=== PATIENT | male | born 1945 | race Asian ===

== ENCOUNTER 2016-07-24 23:34 | Inpatient (IN) | payer MEDICAID ==
[~2016-07-24] VITALS: Ht 170.2 cm; Wt 67.1 kg
--- NOTE | 2016-07-24 23:45 | NUR ---
71 YO MALE [facility],. PT IS NON VERBAL, RESPONSIVE TO VERBAL STIMULI. PT GOWNED, PLACE DON SR VICE PRESIDENT. PER EMS, PT WAS SENT FOR HEMATURIA. NOTED GROSS AMOUNT OF BLOOD IN YEPEZ BAG. AWAITING ORDERS FROM PROVIDER, WILL CONTINUE TO MONITOR
--- NOTE | 2016-07-25 | NUR ---
IRRIGATED YEPEZ CATH ORDERED
[2016-07-25 00:15] LABS: APPEARANCE,URINE CLOUDY (CLEAR); BILIRUBIN,URINE 2+ (NEGATIVE); BLOOD, URINE 3+ Ery/uL (NEGATIVE); COLOR,URINE BROWN (YELLOW); KETONES,URINE TRACE (NEGATIVE); LEUKOCYTE ESTERASE ,URINE 3+ (NEGATIVE); NITRITE, URINE POSITIVE (NEGATIVE); PH,URINE 6.5 (5.0-8.0); PROTEIN,URINE 3+ mg/dl (NEGATIVE); UGLUCOSE NEGATIVE (NEGATIVE)
[2016-07-25 00:24] LABS: BACTERIA,URINE Many /HPF (None Seen); RBC,URINE TOO NUMEROUS TO COUN /HPF (0-2); SQUAMOUS EPITHELIAL CELL,UR Rare /HPF (None Seen); WBC,URINE TOO NUMEROUS TO COUN /HPF (0-3)
[2016-07-25] MEDS ORDERED: ATOR10TA PO (00:27)
[2016-07-25] MEDS ORDERED: MULT-213 PO (00:27)
[2016-07-25] MEDS ORDERED: AMIN30LI27 PO (00:27)
[2016-07-25] MEDS ORDERED: BISA10SU8 RC (00:27)
[2016-07-25] MEDS ORDERED: DOCU-270 PO (00:27)
[2016-07-25] MEDS ORDERED: DEXT1CAP3 PO (00:27)
[2016-07-25] MEDS ORDERED: CALC1TAB30 PO (00:27)
[2016-07-25] MEDS ORDERED: CRAN450C PO (00:27)
[2016-07-25] MEDS ORDERED: MIRT15TA PO (00:27)
[2016-07-25] MEDS ORDERED: SENN8.6T6 PO (00:27)
[2016-07-25] MEDS ORDERED: POTA8CAP10 PO (00:27)
[2016-07-25] MEDS ORDERED: OMEP40CA37 PO (00:27)
[2016-07-25] MEDS ORDERED: ASPI81TA2 PO (00:27)
[2016-07-25] MEDS ORDERED: INSU100V28 SQ (00:27)
[2016-07-25 00:47] LABS: APPEARANCE,URINE CLOUDY (CLEAR); COLOR,URINE AMBER (YELLOW)
[2016-07-25 00:48] LABS: BILIRUBIN,URINE 2+ (NEGATIVE); BLOOD, URINE 3+ Ery/uL (NEGATIVE); KETONES,URINE TRACE (NEGATIVE); NITRITE, URINE POSITIVE (NEGATIVE); PH,URINE 6.5 (5.0-8.0); PROTEIN,URINE 3+ mg/dl (NEGATIVE); UGLUCOSE NEGATIVE (NEGATIVE)
[2016-07-25 00:49] LABS: LEUKOCYTE ESTERASE ,URINE 3+ (NEGATIVE); RBC,URINE TOO NUMEROUS TO COUN /HPF (0-2)
[2016-07-25 00:50] LABS: BACTERIA,URINE 3+ /HPF (None Seen); SQUAMOUS EPITHELIAL CELL,UR Few /HPF (None Seen); WBC,URINE TOO NUMEROUS TO COUN /HPF (0-3)
[2016-07-25] MEDS ORDERED: CEFTRIAXONE 1GM BAG (ER ONLY) 50 ML IV ONE (01:08)
[2016-07-25] MEDS ORDERED: IV SET PRIMARY PUMP SET 1 EA INFUS.SET MC ONE ×2 (01:09→04:39)
--- NOTE | 2016-07-25 01:26 | NUR ---
MEDICATED PT ORDERED
--- NOTE | 2016-07-25 01:26 | NUR ---
20G LEFT FA IV STARTED. BLOOD SAMPLE OBTAINED AND SENT TO LAB
[2016-07-25] MEDS ORDERED: CEFTRIAXONE 1GM BAG (ER ONLY) 1 GM/50 ML PIGGYBACK IV ONE (01:30)
[2016-07-25 01:59] LABS: BASOPHILS % (AUTO) 0.1 % (0.0-2.0); EOSINOPHILS # (AUTO) 0.3 /CMM (0.0-0.7); EOSINOPHILS % (AUTO) 2.4 % (0.0-6.0); HEMATOCRIT 44 % (39-51); HEMOGLOBIN 14.1 g/dL (13.5-17.5); LYMPHOCYTES # (AUTO) 1.4 /CMM (0.8-4.8); LYMPHOCYTES % (AUTO) 12.1 % (20.0-44.0); MEAN CORPUSCULAR HEMOGLOBIN 28 PG (26.0-33.0); MEAN CORPUSCULAR HGB CONC 32 g/dl (31.0-36.0); MEAN CORPUSCULAR VOLUME 87 fL (80-96); MONOCYTES # (AUTO) 0.9 /CMM (0.1-1.30); MONOCYTES % (AUTO) 7.8 % (2.0-12.0); NEUTROPHILS # (AUTO) 8.9 /CMM (1.8-8.9); NEUTROPHILS % (AUTO) 77.6 % (43.0-81.0); PLATELET COUNT (AUTO) 299 /CMM (150-450); RDW COEFFICIENT OF VARIATION 16.5 (11.5-15.0); RED BLOOD CELL COUNT(AUTO) 5.08 MIL/uL (4.5-6.0); WHITE BLOOD COUNT (AUTO) 11.5 K/uL (4.3-11.0)
[2016-07-25 02:11] LABS: CALCIUM, SERUM 9.2 mg/dL (8.5-10.1); CARBON DIOXIDE 26 mmol/L (21-32); CHLORIDE 102 mmol/L (98-107); CREATININE 1.2 mg/dL (0.6-1.3); GLUCOSE 165 mg/dL (74-106); POTASSIUM 3.9 mmol/L (3.5-5.1); SODIUM SERUM 138 mmol/L (136-145); UREA NITROGEN, BLOOD 15 mg/dL (7-18)
[2016-07-25 02:15] LABS: INR 1.02 (0.87-1.13); PROTHROMBIN TIME 10.9 SECS (9.5-12.7)
--- NOTE | 2016-07-25 02:44 | NUR ---
REPORT GIVEN TO MS NURSE FOR ADMISSION
[2016-07-25] MEDS ORDERED: ACETAMINOPHEN 325 MG TABLET PO PRN (03:00)
[2016-07-25] MEDS ORDERED: CEFTRIAXONE 1 G in IV D5W 50 ML IV SCH (03:00)
[2016-07-25] MEDS ORDERED: MAGNESIUM HYDROXIDE 30 ML UDC PO PRN (03:00)
[2016-07-25] MEDS ORDERED: IV NS 0.9% 500 ML IV ONE ×2 (03:00→04:51)
[2016-07-25] MEDS ORDERED: BISACODYL SUPP (10 MG) 10 MG/SUPP.RECT SUPP.RECT RC PRN (03:00)
[2016-07-25] MEDS ORDERED: MAG HYDROX/AL HYDROX/SIMETH 30 ML UDC PO PRN (03:00)
[2016-07-25] MEDS ORDERED: ONDANSETRON HCL/PF 4 MG/2 ML VIAL IVP PRN (03:00)
[2016-07-25] MEDS ORDERED: HYDROCODONE/APAP 5/325MG 1 EACH TABLET PO PRN (03:00)
--- NOTE | 2016-07-25 03:15 | NUR ---
RN OPEN NOTES RECEIVED PATIENT FROM ER VIA ALEXSANDRA. A/OX1, NON-VERBAL. NO SIGNS OF DISTRESS OR DISCOMFORT. BREATHING EVEN AND UNLABORED. IV ACCESS IN LFA PATENT AND INTACT, NO SIGNS OF REDNESS OR INFILTRATION. ORIENTED PATIENT TO UNIT AND ROOM . BED IN LOW LOCKED POSITION WITH SIDE RAILS X2. CALL LIGHT WITHIN REACH. WILL CONTINUE TO MONITOR.
[2016-07-25 03:30] VITALS: BP 114/79
[2016-07-25 04:00] VITALS: BP 114/79
[2016-07-25 04:25] LABS: BASOPHILS % (AUTO) 0.1 % (0.0-2.0); EOSINOPHILS # (AUTO) 0.3 /CMM (0.0-0.7); EOSINOPHILS % (AUTO) 3.1 % (0.0-6.0); HEMATOCRIT 42 % (39-51); HEMOGLOBIN 13.5 g/dL (13.5-17.5); LYMPHOCYTES # (AUTO) 1.6 /CMM (0.8-4.8); LYMPHOCYTES % (AUTO) 15.3 % (20.0-44.0); MEAN CORPUSCULAR HEMOGLOBIN 28 PG (26.0-33.0); MEAN CORPUSCULAR HGB CONC 32 g/dl (31.0-36.0); MEAN CORPUSCULAR VOLUME 86 fL (80-96); MONOCYTES # (AUTO) 0.9 /CMM (0.1-1.30); MONOCYTES % (AUTO) 8.8 % (2.0-12.0); NEUTROPHILS # (AUTO) 7.4 /CMM (1.8-8.9); NEUTROPHILS % (AUTO) 72.7 % (43.0-81.0); PLATELET COUNT (AUTO) 293 /CMM (150-450); RDW COEFFICIENT OF VARIATION 16.6 (11.5-15.0); RED BLOOD CELL COUNT(AUTO) 4.89 MIL/uL (4.5-6.0); WHITE BLOOD COUNT (AUTO) 10.2 K/uL (4.3-11.0)
[2016-07-25] MEDS ORDERED: IV NS 0.9% 1,000 ML ONE (04:40)
[2016-07-25] MEDS ORDERED: IV NS 0.9% 0 ML IV ONE (04:43)
[2016-07-25 04:55] LABS: CREATININE 1.1 mg/dL (0.6-1.3); POTASSIUM 3.8 mmol/L (3.5-5.1)
[2016-07-25 05:01] LABS: BILIRUBIN,TOTAL 0.5 mg/dL (0.2-1.0)
[2016-07-25 05:09] LABS: BILIRUBIN,DIRECT 0.1 mg/dL (0.0-0.2)
[2016-07-25] MEDS: IV NS 0.9% 1,000 ML IV PRN ×2 (06:40→22:22)
[2016-07-25 07:02] VITALS: BP 130/90
--- NOTE | 2016-07-25 07:30 | NUR ---
RN CLOSING NOTES PATIENT AWAKE IN BED. NO SIGNS OF DISTRESS OR DISCOMFORT. BREATHING EVEN AND UNLABORED. IV ACCESS IN LFA WITH NS INFUSING, PATENT AND INTACT, NO SIGNS OF REDNESS OR INFILTRATION. ALL NEEDS MET NO SIGNIFICANT CHANGES THROUGH THE NIGHT. BED IN LOW LOCKED POSITION WITH SIDE RAILS X2. CALL LIGHT WITHIN REACH. ENDORSED TO AM SHIFT FOR RADHA.
--- NOTE | 2016-07-25 07:50 | NUR ---
RN OPEN NOTES RECEIVED REPORT FROM PATROL POLICE SERGEANT NURSE. PATIENT IS IN BED, NON VERBAL. BED IS IN LOW POSITION, LOCKED AND 2 SIDE RAILS ARE UP. WILL CONTINUE TO ASSESS AND MONITOR PATIENT.
[2016-07-25] MEDS ORDERED: Medication Not On Formulary EA (Cranberry Fruit Concentrate (Cranberry) 450 MG) PO SCH (09:00)
[2016-07-25] MEDS: DOCUSATE SODIUM 100 MG CAPSULE PO SCH (09:00)
[2016-07-25] MEDS: POTASSIUM CHLORIDE 10 MEQ TABLET.SA PO SCH (09:00)
[2016-07-25] MEDS ORDERED: Medication Not On Formulary EA (Dextromethorphan Hbr/Quinidine (Nuedexta 20-10 Mg Capsul PO SCH (09:00)
--- NOTE | 2016-07-25 10:59 | NUR ---
DIET CHANGED FROM NPO TO PUREED CCHO. WILL ADMINISTER MEDICATION.
[2016-07-25] MEDS: MULTIVITAMINS W-MINERALS 1 TAB TABLET PO SCH (11:14)
[2016-07-25] MEDS: PANTOPRAZOLE 40 MG TABLET.DR PO SCH (11:15)
[2016-07-25] MEDS: CALCIUM CARB 250MG /VITAMIN D 1 UDTAB PO SCH ×2 (11:15→17:15)
[2016-07-25] MEDS: PROSOURCE / PROSTAT (PYXIS) 30 ML UDC PO SCH ×2 (11:15→17:15)
--- NOTE | 2016-07-25 11:16 | NUR ---
RN NOTES 0900 MEDS PATIENT IS ON PUREED DIET AND UNABLE TO SWALLOW MEDS. POTASSIUM AND COLACE WASN'T ADMINISTERED DUE TO "NOT CRUSHED OR CUT" MED.
[2016-07-25 12:00] VITALS: BP 115/74
[2016-07-25 16:05] VITALS: BP 114/70
--- NOTE | 2016-07-25 17:00 | NUR ---
DR HOLLIDAY MADE AWARE OF TROPONIN LEVEL TRENDING DOWN.
[2016-07-25] MEDS: ATORVASTATIN 10 MG TABLET PO SCH (17:19)
[2016-07-25] MEDS: MIRTAZAPINE 15 MG TABLET PO SCH (17:19)
--- NOTE | 2016-07-25 17:32 | NUR ---
PER DR HOLLIDAY, NO CHEMICAL VTE DUE TO CVA HISTORY
[2016-07-25] MEDS ORDERED: DEXTROSE 50%-WATER 50 ML DISP.SYRIN IV PRN (18:00)
--- NOTE | 2016-07-25 19:02 | NUR ---
RN CLOSING NOTES PATIENT IS IN BED, NON VERBAL. BED IS IN LOW POSITION, LOCKED AND 2 SIDE RAILS ARE UP. NO SIGNS AND SYMPTOMS OF DISTRESS. WILL ENDORSE TO AUTOMATED MANUFACTURING INSTRUCTOR NURSE.
--- NOTE | 2016-07-25 19:30 | NUR ---
MS RN INITIAL NOTE RECEIVED PT AWAKE NON-VERBAL, STABLE, NO PAIN OR RESPIRATORY DISTRESS NOTED, CLEAN/DRY AND COMFORTABLE, SAFETY MEASURES IN PLACE, WILL ANTICIPATE AND ATTEND TO NEEDS PROMPTLY.
[2016-07-25 20:00] VITALS: BP 131/75
[2016-07-25] MEDS: BLOOD SUGAR DIAGNOSTIC 1 EACH STRIP IN SCH (21:42)
[2016-07-25] MEDS: SENNOSIDES 8.6 MG TABLET PO SCH (21:44)
[2016-07-25] MEDS: Z GUARD REMEDY 2 OZ OINT TP SCH (22:22)
[2016-07-25] MEDS: CEFTRIAXONE 1 G in IV D5W 50 ML IV SCH (23:02)
[2016-07-25] MEDS ORDERED: SECONDARY IV SET 1 EA INFUS.SET MC ONE (23:04)
--- NOTE | 2016-07-26 04:30 | NUR ---
PT'S BS FOUND TO BE 51 AT 0340, D50% GIVEN, AFTER RECHECKING BS IS NOW 215, PT APPEARS COMFORTABLE WITH NO DISTRESS, WILL CONTINUE TO MONITOR CLOSELY.
--- NOTE | 2016-07-26 06:22 | NUR ---
MS RN CLOSING NOTE UPON RE-CHECKING PT'S BS IT IS NOW 163, DUE TO RECENT DROP IN BS NO COVERAGE PROVIDED, PT APPEARS COMFORTABLE WITH NO RESPIRATORY DISTRESS, ALL NEEDS HAVE BEEN MET, WILL ENDORSE TO AM NURSE FOR RADHA.
[2016-07-26 07:39] LABS: BASOPHILS % (AUTO) 0.6 % (0.0-2.0); EOSINOPHILS # (AUTO) 0.5 /CMM (0.0-0.7); HEMATOCRIT 34 % (39-51); HEMOGLOBIN 11.2 g/dL (13.5-17.5); LYMPHOCYTES # (AUTO) 1.5 /CMM (0.8-4.8); LYMPHOCYTES % (AUTO) 22.2 % (20.0-44.0); MEAN CORPUSCULAR HEMOGLOBIN 28 PG (26.0-33.0); MEAN CORPUSCULAR HGB CONC 33 g/dl (31.0-36.0); MEAN CORPUSCULAR VOLUME 86 fL (80-96); MONOCYTES # (AUTO) 0.5 /CMM (0.1-1.30); NEUTROPHILS # (AUTO) 4.4 /CMM (1.8-8.9); NEUTROPHILS % (AUTO) 63.2 % (43.0-81.0); PLATELET COUNT (AUTO) 272 /CMM (150-450); RDW COEFFICIENT OF VARIATION 16.3 (11.5-15.0); RED BLOOD CELL COUNT(AUTO) 3.97 MIL/uL (4.5-6.0); WHITE BLOOD COUNT (AUTO) 6.9 K/uL (4.3-11.0)
[2016-07-26 07:43] LABS: ALBUMIN 2.6 g/dL (3.4-5.0); BILIRUBIN,TOTAL 0.6 mg/dL (0.2-1.0); CALCIUM, SERUM 7.7 mg/dL (8.5-10.1); MAGNESIUM 1.8 mg/dL (1.8-2.4); PHOSPHORUS 2.9 mg/dL (2.5-4.9); POTASSIUM 3.2 mmol/L (3.5-5.1); TOTAL PROTEIN, SERUM 7.4 g/dL (6.4-8.2)
--- NOTE | 2016-07-26 07:45 | NUR ---
MS WATKINS OPENING RECEIVED PATIENT A/OX4 PERUVIAN SPEAKING ONLY TRANSLATION WITH HADLEY GEE. PATIENT WAS GIVEN PAIN MEDICATIONS AND STATES THIS HAS WORKED. PATIENT STATES NO NEEDS AT THIS TIME AND ASSISTED TO POSITION OF COMFORT. PATIENT WITH CALL LIGHT IN REACH, BED LOWERED AND LOCKED, RAILS UPX3 FOR SAFETY AND WILL ROUND Q2H OR LESS PER NEEDS Addendum: 07/26/16 at 1229 by KASHMIR SILVA RN INCORRECT PATIENT.
--- NOTE | 2016-07-26 07:45 | NUR ---
MS RN OPENING RECEIVED PATIENT NON VERBAL NODS HEAD NO TO SOB, DIFFICULTY BREATHING OR PAIN. PATIENT ASSISTED TO POSITION OF COMFORT AND HEELS AND ELBOWS OFFLOADED. IVF RUNNING ORDERED IV PATENT INTACT. PATIENT APPEARS STABLE AT THIS TIME. CALL LIGHT IN HAND, TV ON FOR DISTRACTION. RAILS UPX3 FOR SAFETY, BED LOWERED AND LOCKED, WILL ROUND Q2H OR LESS PER NEEDS
[2016-07-26 07:47] LABS: THYROID STIMULATING HORMONE 2.135 uIU/mL (0.358-3.74)
[2016-07-26 08:00] VITALS: BP 126/84
[2016-07-26] MEDS ORDERED: FEE PK DOSING 1 MIN EA MC ONE (08:13)
[2016-07-26] MEDS: Z GUARD REMEDY 2 OZ OINT TP SCH ×2 (08:17→22:02)
[2016-07-26] MEDS: CALCIUM CARB 250MG /VITAMIN D 1 UDTAB PO SCH ×2 (08:18→16:59)
[2016-07-26] MEDS: POTASSIUM CHLORIDE 10 MEQ TABLET.SA PO SCH (08:18)
[2016-07-26] MEDS: MULTIVITAMINS W-MINERALS 1 TAB TABLET PO SCH (08:18)
[2016-07-26] MEDS: PANTOPRAZOLE 40 MG TABLET.DR PO SCH (08:18)
[2016-07-26] MEDS: PROSOURCE / PROSTAT (PYXIS) 30 ML UDC PO SCH ×2 (08:18→16:59)
[2016-07-26] MEDS: DOCUSATE SODIUM 100 MG CAPSULE PO SCH (08:18)
[2016-07-26 08:26] VITALS: BP 126/84
[2016-07-26] MEDS: VANCOMYCIN 1 GM in IV D5W 250 ML IV SCH ×2 (09:30→21:40)
--- NOTE | 2016-07-26 10:00 | NUR ---
MS RN NOTES PATIENT IS BEING REPOSITIONED Q2H BUT TAKING PILLOWS OUT FROM UNDER HIM. EDUCATED ON SKIN CARE.
[2016-07-26] MEDS: POTASSIUM CHLORIDE 20 MEQ POWDER PACKET NG SCH ×2 (11:47→12:52)
--- NOTE | 2016-07-26 12:00 | NUR ---
MS RN NOTES PATIENT IS BEING REPOSITIONED Q2H BUT TAKING PILLOWS OUT FROM UNDER HIM. EDUCATED ON SKIN CARE.
[2016-07-26] MEDS: IV NS 0.9% 1,000 ML IV PRN (12:41)
[2016-07-26] MEDS: BLOOD SUGAR DIAGNOSTIC 1 EACH STRIP IN SCH ×3 (12:42→21:46)
--- NOTE | 2016-07-26 14:00 | NUR ---
MS RN NOTES PATIENT IS BEING REPOSITIONED Q2H BUT TAKING PILLOWS OUT FROM UNDER HIM. EDUCATED ON SKIN CARE.
[2016-07-26 16:00] VITALS: BP 168/97
--- NOTE | 2016-07-26 16:00 | NUR ---
MS RN NOTES PATIENT IS BEING REPOSITIONED Q2H BUT TAKING PILLOWS OUT FROM UNDER HIM. EDUCATED ON SKIN CARE.
[2016-07-26 16:25] VITALS: BP 148/90
[2016-07-26] MEDS: ATORVASTATIN 10 MG TABLET PO SCH (17:00)
[2016-07-26] MEDS: MIRTAZAPINE 15 MG TABLET PO SCH (17:00)
[2016-07-26] MEDS: INSULIN REGULAR, HUMAN 100 UNIT/ML 3 ML VIAL SQ PRN ×2 (17:03→21:43)
[2016-07-26] MEDS: Z GUARD REMEDY 2 OZ OINT TP PRN ×3 (17:11→21:59)
[2016-07-26 18:05] VITALS: BP 168/120
--- NOTE | 2016-07-26 18:05 | NUR ---
MS RN NOTES REPEATED MANUAL BP 168/[address] CAMILLE RUGGIERO. MESSAGE LEFT
--- NOTE | 2016-07-26 18:35 | NUR ---
MS RN CLOSING PATIENT STABLE NO COMPLICATIONS NO CHANGES THROUGHOUT DAY. PATIENT NODS NO TO NEEDING ANYTHING. ASSISTED TO POSITION OF COMFORT. TV ON AND BED LOWERED AND LOCKED, RAILS UPX3 FOR SAFETY AND WILL ENDORSE CARE TO RN FOR RADHA.
--- NOTE | 2016-07-26 18:46 | NUR ---
MS RN NOTES SECOND MESSAGE TO DR CAMILLE RUGGIERO FOR PRN BP MEDICATION FOR PATIENT
--- NOTE | 2016-07-26 19:12 | NUR ---
MS RN NOTES SPOKE WITH DR FRANK PER ORDER HYDRALAZINE 10MG PO Q6H PRN FOR SBP OVER 160
--- NOTE | 2016-07-26 19:15 | NUR ---
JUNE OPEN NOTES RECEIVED PATIENT AWAKE IN BED. A/OX1, NON-VERBAL WITH EYE OPENING AND NODDING RESPONSE. NO SIGNS OF DISTRESS OR DISCOMFORT. BREATHING EVEN AND UNLABORED. IV ACCESS IN LFA WITH NS INFUSING, PATENT AND INTACT, NO SIGNS OF REDNESS OR INFILTRATION. BED IN LOW LOCKED POSITION WITH SIDE RAILS X2. CALL LIGHT WITHIN REACH. WILL CONTINUE TO MONITOR. Addendum: 07/26/16 at 2105 by ELIA GUEVARA RN PER AM SHIFT PATIENT LAST BP WAS ELEVATED. RECEIVED ORDERS FOR PRN BP MED. Addendum: 07/26/16 at 2322 by ELIA GUEVARA RN PATIENT HAS F/C, PATENT AND INTACT, WITH CLEAR YELLOW FLUID NOTED.
[2016-07-26] MEDS ORDERED: hydrALAZINE HCL 10 MG TABLET PO PRN (19:30)
[2016-07-26 20:00] VITALS: BP 157/94
[2016-07-26] MEDS: SENNOSIDES 8.6 MG TABLET PO SCH (21:46)
[2016-07-26] MEDS ORDERED: SECONDARY IV SET 1 EA INFUS.SET MC ONE (23:31)
[2016-07-26] MEDS: CEFTRIAXONE 1 G in IV D5W 50 ML IV SCH (23:33)
[2016-07-27] MEDS: IV NS 0.9% 1,000 ML IV PRN ×2 (06:53→17:23)
[2016-07-27] MEDS: BLOOD SUGAR DIAGNOSTIC 1 EACH STRIP IN SCH ×4 (06:54→22:11)
[2016-07-27 07:15] LABS: BASOPHILS # (AUTO) 0.1 /CMM (0.0-0.2); BASOPHILS % (AUTO) 0.7 % (0.0-2.0); EOSINOPHILS # (AUTO) 0.7 /CMM (0.0-0.7); EOSINOPHILS % (AUTO) 8.4 % (0.0-6.0); HEMATOCRIT 38 % (39-51); HEMOGLOBIN 12.6 g/dL (13.5-17.5); LYMPHOCYTES % (AUTO) 24.9 % (20.0-44.0); MEAN CORPUSCULAR HEMOGLOBIN 29 PG (26.0-33.0); MEAN CORPUSCULAR HGB CONC 33 g/dl (31.0-36.0); MEAN CORPUSCULAR VOLUME 87 fL (80-96); MONOCYTES # (AUTO) 0.7 /CMM (0.1-1.30); MONOCYTES % (AUTO) 8.3 % (2.0-12.0); NEUTROPHILS # (AUTO) 4.6 /CMM (1.8-8.9); NEUTROPHILS % (AUTO) 57.7 % (43.0-81.0); PLATELET COUNT (AUTO) 283 /CMM (150-450); RDW COEFFICIENT OF VARIATION 15.8 (11.5-15.0); RED BLOOD CELL COUNT(AUTO) 4.39 MIL/uL (4.5-6.0)
[2016-07-27 07:26] LABS: CALCIUM, SERUM 8.4 mg/dL (8.5-10.1); MAGNESIUM 1.8 mg/dL (1.8-2.4); PHOSPHORUS 3.1 mg/dL (2.5-4.9); POTASSIUM 3.4 mmol/L (3.5-5.1)
[2016-07-27] MEDS: PANTOPRAZOLE 40 MG TABLET.DR PO SCH ×2 (07:30→08:05)
--- NOTE | 2016-07-27 07:42 | NUR ---
RN CLOSINGNOTES PATIENT AWAKE IN BED. A/OX1, NON-VERBAL WITH EYE OPENING AND NODDING RESPONSE. NO SIGNS OF DISTRESS OR DISCOMFORT. BREATHING EVEN AND UNLABORED. IV ACCESS IN LFA WITH NS INFUSING, PATENT AND INTACT, NO SIGNS OF REDNESS OR INFILTRATION. HAS F/C INTACT AND PATENT, WITH CLEAR YELLOW FLUID NOTED. ALL NEEDS MET. REPOSITIONED PATIENT Q2H. NO SIGNIFICANT CHANGES THROUGH THE NIGHT. BED IN LOW LOCKED POSITION WITH SIDE RAILS X2. CALL LIGHT WITHIN REACH. ENDORSED TO AM SHIFT FOR RADHA.
[2016-07-27 08:00] VITALS: BP 135/84
[2016-07-27] MEDS: VANCOMYCIN 1 GM in IV D5W 250 ML IV SCH ×2 (08:04→20:46)
[2016-07-27] MEDS: POTASSIUM CHLORIDE 10 MEQ TABLET.SA PO SCH ×2 (08:04→09:45)
[2016-07-27] MEDS: MULTIVITAMINS W-MINERALS 1 TAB TABLET PO SCH ×2 (08:04→09:00)
[2016-07-27] MEDS: DOCUSATE SODIUM 100 MG CAPSULE PO SCH (08:05)
[2016-07-27] MEDS: CALCIUM CARB 250MG /VITAMIN D 1 UDTAB PO SCH ×3 (08:05→17:22)
[2016-07-27] MEDS: PROSOURCE / PROSTAT (PYXIS) 30 ML UDC PO SCH ×3 (08:05→17:22)
[2016-07-27] MEDS: Z GUARD REMEDY 2 OZ OINT TP SCH ×2 (08:05→21:00)
[2016-07-27] MEDS ORDERED: SECONDARY IV SET 1 EA INFUS.SET MC ONE (08:10)
--- NOTE | 2016-07-27 09:06 | NUR ---
MS RN NOTES PATIENT STILL REFUSING MEDICATIONS AT THIS TIME
[2016-07-27] MEDS ORDERED: POTASSIUM CHLORIDE 20 MEQ TAB.PRT.SR PO ONE (09:30)
--- NOTE | 2016-07-27 09:50 | NUR ---
MS RN NOTES PATIENT REFUSING ALL MEDICATIONS BUT EDCUATED ON LOW K AND AGREEABLE TO TAKING THE POTASSIUM
--- NOTE | 2016-07-27 12:15 | NUR ---
MS RN NOTES NOTIFIED JUAN FRANCISCO OF MRSA URINE. PER JUAN FRANCISCO REMOVE YEPEZ CATH. IF PATIENT DOES NOT URINATE IN 6 HOURS INSERT ANOTHER YEPEZ CATH. OBTAIN ANOTHER UA AND URINE CULTURE.
--- NOTE | 2016-07-27 14:54 | NUR ---
MS RN NOTES YEPEZ CATH REMOVED MANDEEP CARE COMPLETED. NO COMPLICATIONS NOTED. PER JUAN FRANCISCO'S ORDER AT 9PM (6HRS AFTER) INSERT YEPEZ IF NO URINATION
[2016-07-27 16:00] VITALS: BP 145/94
[2016-07-27] MEDS: MIRTAZAPINE 15 MG TABLET PO SCH (17:22)
[2016-07-27] MEDS: ATORVASTATIN 10 MG TABLET PO SCH (17:22)
[2016-07-27] MEDS: LACTOBACILLUS RHAMNOSUS GG 1 EACH CAP.SPRINK PO SCH (17:23)
[2016-07-27] MEDS: Z GUARD REMEDY 2 OZ OINT TP PRN (17:23)
--- NOTE | 2016-07-27 18:33 | NUR ---
MS RN CLOSING PATIENT STABLE NO COMPLICATIONS THROUGHOUT DAY. NO URINE OUTPUT YET FROM PATIENT; UNTIL 9PM PER MD. PATIENT NODS NO TO PAIN, SOB, DIFFICULTY BREATHING. PATIENT IN POSITION OF COMFORT. DIFFICULTY TO TURN AND OFFLOAD PATIENT TODAY DUE TO MOVING PILLOWS AND TURNING ON BACK. FREQUENT ROUNDING TO ASSIST WITH REPOSITIONINGS WERE MADE. PATINET WITH TV ON TO PREFERRED CHANNEL, RAILS UPX3 AND BED ALARM ON. WILL ENDORSE CARE TO RN FOR RADHA.
--- NOTE | 2016-07-27 20:00 | NUR ---
MS PAGE MAKEUP SYSTEM OPERATOR INITIAL NOTES CHECKED PT AFTER GOT REPORT FROM AM NURSE FOR CONTINUITY OF CARE. HE'S AWAKE AND ALERT TO HIS NAME ,NON-VERBAL , SMILED WHEN YOU CALL HIS NAME. RESPIRATION EVEN AND NON-LABORED , NOT IN ANY ACUTE DISTRESS NOTED. HE STILL HAVE IVF OF NS AT 75ML/HR INFUSING AT THIS TIME. ISOLATION PRECAUTION AND FALL IMPLEMENTED AND OBSERVED. WILL CONTINUE TO MONITOR. PLACE CALL LIGHT AT REACH.
[2016-07-27 20:35] VITALS: BP 143/89
[2016-07-27] MEDS: MEROPENEM 500 MG in IV NS 0.9% 50 ML IV SCH (22:01)
[2016-07-27] MEDS: SENNOSIDES 8.6 MG TABLET PO SCH (22:12)
--- NOTE | 2016-07-27 22:15 | NUR ---
RESERVATION CLERK/NOTES BLOOD SUGAR CHECKED DONE 161, 3 UNITS OF INSULIN GIVEN STEVE SQ ORDERED. NO SIGNS OF HYPO/HYPER GLYCEMIA NOTED. KEPT HIM WARM AND COMFORTABLE AT ALL TIMES. WILL CONTINUE TO MONITOR.
[2016-07-27] MEDS: INSULIN REGULAR, HUMAN 100 UNIT/ML 3 ML VIAL SQ PRN (22:16)
--- NOTE | 2016-07-28 | NUR ---
BOAT PILOT/NOTES PT SLEEPING COMFORTABLY IN BED WITHOUT ANY ACUTE DISTRESS NOTED. IVF STILL INFUSING .
[2016-07-28] MEDS: MEROPENEM 500 MG in IV NS 0.9% 50 ML IV SCH ×3 (05:21→21:38)
[2016-07-28] MEDS: Z GUARD REMEDY 2 OZ OINT TP PRN ×3 (06:18→21:24)
[2016-07-28] MEDS: BLOOD SUGAR DIAGNOSTIC 1 EACH STRIP IN SCH ×4 (06:19→21:25)
[2016-07-28] MEDS: PANTOPRAZOLE 40 MG TABLET.DR PO SCH (06:31)
--- NOTE | 2016-07-28 07:00 | NUR ---
MS PAYROLL PROCESSOR CLOSING NOTES PT AWAKE AND ALERT WATCHING TV , STABLE STEVE THE NIGHT , BLOOD SUGAR 113, NO INSULIN COVERAGE, NO SIGNS OF HYPO GLYCEMIA NOTED. SLEPT WELL, IVF STILL INFUSING ON HIS LEFT FOREARM. ALL DUE MEDS GIVEN AND ALL NEEDS MET. KEPT HIM WARM AND COMFORTABLE AT ALL TIMES. ENDORSE TO AM NURSE MARLOW FOR CONTINUITY OF CARE.
--- NOTE | 2016-07-28 07:29 | NUR ---
MS RN OPENING RECEIVED PATIENT AWAKE NODS HEAD NO TO SOB, DIFFICULTY BREATHING OR PAIN. PER RADIO ENGINEERING TEACHER PATIENT URINATED 3 TIMES LAST NIGHT BUT NO URINE SAMPLE TAKEN. PER JUAN FRANCISCO INSPECTOR SALVAGE OK STRAIGHT CATH ORDER FOR URINE SAMPLE. PATIENT SKIN CARE COMPLETED AND REPOSITIONED TO POSITION OF COMFORT. PATIENT WITH TV ON TO CHANNEL HE NODS YES TO, BED LOWERED AND LOCKED, RAILS UPX3 FOR SAFETY AND WILL ROUND Q2H OR LESS PER NEEDS. HEELS AND ELBOWS OFFLOADED
[2016-07-28 07:59] LABS: MAGNESIUM 1.9 mg/dL (1.8-2.4); PHOSPHORUS 3.4 mg/dL (2.5-4.9); POTASSIUM 3.9 mmol/L (3.5-5.1)
[2016-07-28 08:00] VITALS: BP 152/94
[2016-07-28] MEDS: CALCIUM CARB 250MG /VITAMIN D 1 UDTAB PO SCH ×2 (08:00→16:13)
[2016-07-28] MEDS: DOCUSATE SODIUM 100 MG CAPSULE PO SCH (08:00)
[2016-07-28] MEDS: PROSOURCE / PROSTAT (PYXIS) 30 ML UDC PO SCH ×2 (08:00→16:13)
[2016-07-28] MEDS: POTASSIUM CHLORIDE 10 MEQ TABLET.SA PO SCH (08:00)
[2016-07-28] MEDS: LACTOBACILLUS RHAMNOSUS GG 1 EACH CAP.SPRINK PO SCH ×2 (08:00→16:13)
[2016-07-28] MEDS: Z GUARD REMEDY 2 OZ OINT TP SCH ×2 (08:00→21:24)
[2016-07-28] MEDS: MULTIVITAMINS W-MINERALS 1 TAB TABLET PO SCH (08:00)
[2016-07-28 08:05] LABS: BASOPHILS % (AUTO) 0.4 % (0.0-2.0); EOSINOPHILS # (AUTO) 0.6 /CMM (0.0-0.7); EOSINOPHILS % (AUTO) 6.7 % (0.0-6.0); HEMATOCRIT 38 % (39-51); HEMOGLOBIN 12.5 g/dL (13.5-17.5); LYMPHOCYTES # (AUTO) 1.8 /CMM (0.8-4.8); LYMPHOCYTES % (AUTO) 20.6 % (20.0-44.0); MEAN CORPUSCULAR HEMOGLOBIN 28 PG (26.0-33.0); MEAN CORPUSCULAR HGB CONC 33 g/dl (31.0-36.0); MEAN CORPUSCULAR VOLUME 87 fL (80-96); MONOCYTES # (AUTO) 0.6 /CMM (0.1-1.30); MONOCYTES % (AUTO) 6.7 % (2.0-12.0); NEUTROPHILS # (AUTO) 5.8 /CMM (1.8-8.9); NEUTROPHILS % (AUTO) 65.6 % (43.0-81.0); PLATELET COUNT (AUTO) 298 /CMM (150-450); RDW COEFFICIENT OF VARIATION 16.3 (11.5-15.0); RED BLOOD CELL COUNT(AUTO) 4.39 MIL/uL (4.5-6.0); WHITE BLOOD COUNT (AUTO) 8.9 K/uL (4.3-11.0)
--- NOTE | 2016-07-28 08:30 | NUR ---
MS RN NOTES NOTIFIED JUAN FRANCISCO 400ML URINE REMOVED FROM IN AND OUT CATH. PER JUAN FRANCISCO THIS IS OK.
[2016-07-28] MEDS: VANCOMYCIN 1 GM in IV D5W 250 ML IV SCH (08:33)
--- NOTE | 2016-07-28 08:34 | NUR ---
MS RN NOTES VANCO TROUGH 21. NOTIFIED PHARMACY
[2016-07-28 09:59] LABS: APPEARANCE,URINE SL CLOUDY (CLEAR); BILIRUBIN,URINE NEGATIVE (NEGATIVE); BLOOD, URINE 2+ Ery/uL (NEGATIVE); COLOR,URINE YELLOW (YELLOW); KETONES,URINE NEGATIVE (NEGATIVE); LEUKOCYTE ESTERASE ,URINE 2+ (NEGATIVE); NITRITE, URINE POSITIVE (NEGATIVE); PH,URINE 6.5 (5.0-8.0); PROTEIN,URINE NEGATIVE (NEGATIVE); UGLUCOSE NEGATIVE (NEGATIVE); UROBILINOGEN,URINE 0.2 EU/dL (0.2)
[2016-07-28 10:28] LABS: BACTERIA,URINE None seen /HPF (None Seen); SQUAMOUS EPITHELIAL CELL,UR None Seen /HPF (None Seen)
--- NOTE | 2016-07-28 13:50 | NUR ---
MS RN NOTES PER PHARMACY 2100 DOSE OF VANCO IS TO BE GIVEN BY NIGHT RN
[2016-07-28] MEDS: IV NS 0.9% 1,000 ML IV PRN (15:59)
[2016-07-28 16:00] VITALS: BP 151/90
[2016-07-28] MEDS: ATORVASTATIN 10 MG TABLET PO SCH (17:02)
[2016-07-28] MEDS: MIRTAZAPINE 15 MG TABLET PO SCH (17:02)
--- NOTE | 2016-07-28 18:46 | NUR ---
MS RN CLOSING PATIENT STABLE NO COMPLICATIONS THROUGHOUT DAY. GOOD URINE OUTPUT. PATIENT NODS NO TO PAIN, SOB, DIFFICULTY BREATHING. PATIENT IN POSITION OF COMFORT.TURNED Q2H AND OFFLOADED Q2H. FREQUENT ROUNDING TO ASSIST WITH REPOSITIONINGS WERE MADE. PATIENT WITH TV ON TO PREFERRED CHANNEL, RAILS UPX3 AND BED ALARM ON. WILL ENDORSE CARE TO RN FOR RADHA.
--- NOTE | 2016-07-28 20:00 | NUR ---
MS ACCESS ASSOC INITIAL NOTES GOT REPORT FROM AM NURSE KASHMIR, CHECKED PT HE'S AWAKE AND ALERT WATCHING TV, NON-VERBAL BUT UNDERSTOOD MY LANGUAGE. HE RESPONSE BY SMILING AND MOANING. NO SIGNS OF ANY ACUTE DISTRESS NOTED. HE STILL HAVE IVF OF NS AT 75ML/HR ON HIS LEFT FOREARM PATENT AND INTACT. DVT PUMP ON BOTH LOWER LEGS. ORDERED. KEPT HIM WARM AND COMFORTABLE AT ALL TIMES. ISOLATION PRECAUTION IMPLEMENTED AND OBSERVED. WILL CONTINUE TO MONITOR. PLACE CALL LIGHT AT REACH.
--- NOTE | 2016-07-28 21:40 | NUR ---
CLOUD ARCHITECT/NOTES MERREM IVP BAG HUNG BY ANOTHER NURSE SID/RN ORDERED, WILL CONTINUE TO MONITOR.
[2016-07-28] MEDS: VANCOMYCIN 0.75 GM in IV D5W 250 ML IV SCH (22:36)
--- NOTE | 2016-07-28 22:40 | NUR ---
HERB GROWER/NOTES VANCOMYCIN IVP BAG NELIDA KRISHNAN LEVEL EARLIER 21, OK TO INFUSED THE DOSAGES TONIGHT PER PHARMACY .
--- NOTE | 2016-07-29 | NUR ---
COLORIST/NOTES PT RESTING COMFORTABLY IN BED WITHOUT ANY ACUTE DISTRESS NOTED. WILL CONTINUE TO MONITOR.
[2016-07-29] MEDS: SENNOSIDES 8.6 MG TABLET PO SCH ×2 (00:26→21:02)
--- NOTE | 2016-07-29 03:00 | NUR ---
tailer in/notes pt sleeping at this time, respiration even and un-labored, skin warm to touch, IVF still infusing on his left arm. no signs of any redness noted. kept him warm and comfortable at all times. will continue to monitor.
[2016-07-29] MEDS: MEROPENEM 500 MG in IV NS 0.9% 50 ML IV SCH ×3 (05:18→20:13)
[2016-07-29] MEDS: PANTOPRAZOLE 40 MG TABLET.DR PO SCH ×2 (06:17→09:17)
[2016-07-29] MEDS: BLOOD SUGAR DIAGNOSTIC 1 EACH STRIP IN SCH ×4 (06:17→21:03)
[2016-07-29 07:30] LABS: BASOPHILS % (AUTO) 0.4 % (0.0-2.0); EOSINOPHILS # (AUTO) 0.8 /CMM (0.0-0.7); EOSINOPHILS % (AUTO) 8.5 % (0.0-6.0); HEMATOCRIT 42 % (39-51); HEMOGLOBIN 13.6 g/dL (13.5-17.5); LYMPHOCYTES % (AUTO) 22.8 % (20.0-44.0); MEAN CORPUSCULAR HEMOGLOBIN 28 PG (26.0-33.0); MEAN CORPUSCULAR HGB CONC 33 g/dl (31.0-36.0); MEAN CORPUSCULAR VOLUME 86 fL (80-96); MONOCYTES # (AUTO) 0.7 /CMM (0.1-1.30); MONOCYTES % (AUTO) 7.3 % (2.0-12.0); NEUTROPHILS # (AUTO) 5.5 /CMM (1.8-8.9); PLATELET COUNT (AUTO) 275 /CMM (150-450); RDW COEFFICIENT OF VARIATION 16.3 (11.5-15.0); RED BLOOD CELL COUNT(AUTO) 4.82 MIL/uL (4.5-6.0); WHITE BLOOD COUNT (AUTO) 8.9 K/uL (4.3-11.0)
--- NOTE | 2016-07-29 07:43 | NUR ---
HIGH SCHOOL COACH CLOSING NOTES PT AWAKE AND ALERT MORNING CARE DONE, BLOOD SUGAR CHECKED DONE 110, NO INSULIN GIVEN, NO SIGNS OF HYPO GLYCEMIA NOTED. ALL DUE MEDS GIVEN AND ALL NEEDS MET. STABLE STEVE THE NIGHT. KEPT HIM WARM AND COMFORTBLE AT ALL TIMES. ENDORSE TO AM NURSE
[2016-07-29 07:53] LABS: CALCIUM, SERUM 8.9 mg/dL (8.5-10.1); MAGNESIUM 1.8 mg/dL (1.8-2.4); PHOSPHORUS 3.3 mg/dL (2.5-4.9)
[2016-07-29 08:00] VITALS: BP 162/98
[2016-07-29] MEDS: DOCUSATE SODIUM 100 MG CAPSULE PO SCH (09:00)
[2016-07-29] MEDS: PROSOURCE / PROSTAT (PYXIS) 30 ML UDC PO SCH ×2 (09:00→17:51)
[2016-07-29] MEDS: LACTOBACILLUS RHAMNOSUS GG 1 EACH CAP.SPRINK PO SCH ×2 (09:16→17:51)
[2016-07-29] MEDS: VANCOMYCIN 0.75 GM in IV D5W 250 ML IV SCH ×2 (09:16→21:52)
[2016-07-29] MEDS: POTASSIUM CHLORIDE 10 MEQ TABLET.SA PO SCH (09:17)
[2016-07-29] MEDS: MULTIVITAMINS W-MINERALS 1 TAB TABLET PO SCH (09:17)
[2016-07-29] MEDS: CALCIUM CARB 250MG /VITAMIN D 1 UDTAB PO SCH ×2 (09:18→17:51)
[2016-07-29] MEDS: Z GUARD REMEDY 2 OZ OINT TP SCH ×2 (09:18→21:07)
[2016-07-29] MEDS: INSULIN REGULAR, HUMAN 100 UNIT/ML 3 ML VIAL SQ PRN (12:15)
[2016-07-29 16:00] VITALS: BP 141/90
--- NOTE | 2016-07-29 16:12 | NUR ---
Per Mia @ [facility] [phone], if discharge, pt is accepted to room 102-B,nurse to call report prior d/c. Called brother Gonzalez [phone] but it went to voicemail and its full cannot leave any messages.Ambulance on will call with [facility]. Nurse to notify patient pls. Addendum: 07/29/16 at 1612 by DAQUAN WASHINGTON RN Amended: Links added.
[2016-07-29] MEDS: MIRTAZAPINE 15 MG TABLET PO SCH (18:00)
[2016-07-29] MEDS: ATORVASTATIN 10 MG TABLET PO SCH (18:00)
--- NOTE | 2016-07-29 19:15 | NUR ---
MS RN OPENING NOTES: RECEIVED PT IN BED A/O X1-2 AND IS NONVERBAL. PT OPENS EYES AND WILL RESPOND BY NODDING. PT IS TAGALOG UNDERSTANDING AND A LITTLE BIT OF CUBAN ONLY. PT IS ON ROOM AIR. PT HAS DIAPER ON. PT IS ON PUREED DIET. PT HAS IV ON L FOREARM #20 AND IS PATENT AND INTACT. FLUIDS INFUSING AT IV 0.9%NS 1,000ML AT 75 ML/HR. PT KEPT CLEAN, DRY, AND COMFORTABLE. BED KEPT IN LOCKED, LOWEST POSTION, AND SIDE RAILS X 2 UP. CALL LIGHT WITHIN PT'S REACH. NO SIGNS OR SYMPTOMS OF DISTRESS NOTED AT THIS TIME. WILL CONTINUE TO MONITOR PT.
[2016-07-29 20:00] VITALS: BP 126/78
[2016-07-29] MEDS ORDERED: IV SET PRIMARY PUMP SET 1 EA INFUS.SET MC ONE (20:16)
--- NOTE | 2016-07-29 21:04 | NUR ---
MS RN NOTES: BLOOD SUGAR WAS 100MG/DL. NO COVERAGE WAS GIVEN. WILL CONTINUE TO MONITOR PT.
[2016-07-29] MEDS: Z GUARD REMEDY 2 OZ OINT TP PRN (21:07)
--- NOTE | 2016-07-29 21:07 | NUR ---
MS RN NOTES: FOR REMEDY Z GUARD, SCANNER DID NOT GIVE ME THE OPTION TO CHOOSE THE SCHEDULED 2100 ONE SO I DOUBLE CLICKED AND PUT IN THE SAME TIME I ADMIN THE Z GUARD FOR 2100. THE ONE THE SCANNER AND ONLY OPTION WAS GIVEN WAS THE PRN REMEDY Z GUARD.
[2016-07-29] MEDS ORDERED: SECONDARY IV SET 1 EA INFUS.SET MC ONE (21:45)
[2016-07-29] MEDS: IV NS 0.9% 1,000 ML IV PRN (22:37)
[2016-07-30] MEDS: MEROPENEM 500 MG in IV NS 0.9% 50 ML IV SCH ×3 (04:06→20:15)
[2016-07-30] MEDS: BLOOD SUGAR DIAGNOSTIC 1 EACH STRIP IN SCH ×4 (06:05→22:24)
--- NOTE | 2016-07-30 06:06 | NUR ---
MS RN NOTES: BLOOD SUGAR WAS 106MG/DL. NO COVERAGE WAS GIVEN. WILL CONTINUE TO MONITOR PT.
[2016-07-30] MEDS: INSULIN REGULAR, HUMAN 100 UNIT/ML 3 ML VIAL SQ PRN (06:40)
--- NOTE | 2016-07-30 07:20 | NUR ---
MS RN CLOSING NOTES: PT IN BED AWAKE AND LAYING DOWN. PT A/O X 1-2 AND IS NON-VERBAL. PT OPENS EYES AND NODS TO COMMANDS. PT IS TAGALOG SPEAKING ONLY. PT KEPT CLEAN, DRY, AND COMFORTABLE. NO SIGNS OR SYMPTOMS OF DISTRESS NOTED AT THIS TIME. CALL LIGHT WITHIN PT' REACH. BED KEPT IN LOCKED, LOWEST POSITION, AND SIDE RAILS X 2UP. PT HAS IV ON L FOREARM #20G AND IS PATENT AND INTACT. FLUIDS ARE INFUSING AT IV 0.9% NS 1,000 ML AT 75 ML/HR. ALL NEEDS WERE ATTENDED AND ANTICIPATED. ENDORSED TO AM FOR CONTINUITY OF CARE.
--- NOTE | 2016-07-30 07:40 | NUR ---
ms rn received a non verbal patient, awake,alert,oriented x2,not in any form of distress, respirations even and unlabored,no sob noted, lungs are diminished , abdomen soft,positive bowel sounds, denies pain at this time.
[2016-07-30 08:00] VITALS: BP 149/87
[2016-07-30 08:14] LABS: CALCIUM, SERUM 8.9 mg/dL (8.5-10.1); CREATININE 0.9 mg/dL (0.6-1.3); POTASSIUM 3.5 mmol/L (3.5-5.1)
[2016-07-30] MEDS ORDERED: Hydralazine Hcl PO (08:48)
[2016-07-30] MEDS ORDERED: LACT1CAP72 PO (08:48)
--- NOTE | 2016-07-30 09:20 | NUR ---
ms rn breakfast serve,due meds given, tolarated well.
[2016-07-30] MEDS: CALCIUM CARB 250MG /VITAMIN D 1 UDTAB PO SCH ×2 (09:36→17:54)
[2016-07-30] MEDS: VANCOMYCIN 0.75 GM in IV D5W 250 ML IV SCH ×2 (09:37→22:24)
[2016-07-30] MEDS: LACTOBACILLUS RHAMNOSUS GG 1 EACH CAP.SPRINK PO SCH ×2 (09:37→17:54)
[2016-07-30] MEDS: POTASSIUM CHLORIDE 10 MEQ TABLET.SA PO SCH (09:37)
[2016-07-30] MEDS: PROSOURCE / PROSTAT (PYXIS) 30 ML UDC PO SCH ×2 (09:37→17:54)
[2016-07-30] MEDS: DOCUSATE SODIUM 100 MG CAPSULE PO SCH (09:37)
[2016-07-30] MEDS: MULTIVITAMINS W-MINERALS 1 TAB TABLET PO SCH (09:44)
[2016-07-30] MEDS: Z GUARD REMEDY 2 OZ OINT TP PRN (09:45)
--- NOTE | 2016-07-30 10:00 | NUR ---
ms rn new iv site inserted at left forearm w/ good venous return.
--- NOTE | 2016-07-30 11:00 | NUR ---
ms rn was seen by neal castañeda np/ orders made and carried out.
--- NOTE | 2016-07-30 11:30 | NUR ---
ms rn was seen by maddy garcia w/ orders made and carried out,
[2016-07-30 16:00] VITALS: BP 126/78
[2016-07-30] MEDS: MIRTAZAPINE 15 MG TABLET PO SCH (17:53)
[2016-07-30] MEDS: ATORVASTATIN 10 MG TABLET PO SCH (17:53)
[2016-07-30] MEDS: Z GUARD REMEDY 2 OZ OINT TP SCH ×2 (17:55→21:00)
[2016-07-30] MEDS: IV NS 0.9% 1,000 ML IV PRN ×2 (17:56→20:08)
--- NOTE | 2016-07-30 18:55 | NUR ---
ms rn on bed, no distress noted.
--- NOTE | 2016-07-30 19:05 | NUR ---
MS RN OPENING NOTES: RECEIVED PATIENT IN BED LAYING DOWN WATCHING TELEVISION. PT IS NONVERBAL. CALL LIGHT WITHIN PT'S REACH. BED KEPT IN LOCKED, LOWEST POSITION, AND SIDE RAILS X 2 UP. IV IS ON L FOREARM #22G AND IS PATENT AND INTACT AND ALSO ON R UPPER ARM #24G AND IS PATENT AND INTACT. FLUIDS ARE INFUSING AT IV 0.9 % NS 1,000ML AT 75ML/HR. NO SIGNS OR SYMPTOMS OF DISTRESS NOTED AT THIS TIME. WILL CONTINUE TO MONITOR PT.
[2016-07-30] MEDS ORDERED: IV SET PRIMARY 1 EA INFUS.SET MC ONE (19:27)
[2016-07-30 20:00] VITALS: BP 124/83
[2016-07-30] MEDS: SENNOSIDES 8.6 MG TABLET PO SCH (22:33)
[2016-07-31] MEDS ORDERED: SECONDARY IV SET 1 EA INFUS.SET MC ONE (01:33)
[2016-07-31] MEDS: MEROPENEM 500 MG in IV NS 0.9% 50 ML IV SCH ×2 (04:01→12:10)
[2016-07-31] MEDS: BLOOD SUGAR DIAGNOSTIC 1 EACH STRIP IN SCH ×3 (06:01→17:33)
--- NOTE | 2016-07-31 06:03 | NUR ---
MS RN NOTES: BLOOD SUGAR WAS 108. NO COVERAGE WAS GIVEN. WILL CONTINUE TO MONITOR PT.
--- NOTE | 2016-07-31 07:03 | NUR ---
MS RN CLOSING NOTES: PT IN BED AWAKE WITH EYES OPEN AND WATCHING TELEVISION. ALL NEEDS WERE ATTENDED. PT IN NO SIGNS OR SYMPTOMS OF DISTRESS. PT HAS IV L FOREARM #22G AND IS PATENT AND INTACT. FLUIDS ARE INFUSING AT 09%NS 1,000ML AT 75ML/HR. PT KEPT CLEAN, DRY
--- NOTE | 2016-07-31 07:25 | NUR ---
MS CLOSING NOTES: ALL NEEDS WERE ATTENDED AND ANTICIPATED FOR. PT KEPT CLEAN, DRY, AND COMFORTABLE. CALL LIGHT WITHIN PT'S REACH. BED KEPT IN LOCKED, LOWEST POSITION, AND SIDE RAILS X 2 UP. PT'S IV IS ON L FOREARM #22G AND IS PATENT AND INTACT. PT ALSO HAS IV ON R UPPER ARM #24G AND IS PATENT AND INTACT. FLUIDS ARE INFUSING AT 0.9% NS 1,000ML AT 75ML/HR. ENDORSED TO AM NURSE FOR CONTINUITY OF CARE.
[2016-07-31 07:38] LABS: CALCIUM, SERUM 8.8 mg/dL (8.5-10.1); CREATININE 0.9 mg/dL (0.6-1.3); POTASSIUM 3.6 mmol/L (3.5-5.1)
[2016-07-31 08:00] VITALS: BP 129/88
--- NOTE | 2016-07-31 08:00 | NUR ---
RN Notes on bed resting well. no complain at this time. On RA saturating at 97% with no SOB. Denies headache or dizziness.Aphasic, nod for a yes. With spontaneous eye opening. Follow simple command. With IV access on right upper arm and left forearm patent and intact.
[2016-07-31] MEDS: VANCOMYCIN 0.75 GM in IV D5W 250 ML IV SCH (10:27)
[2016-07-31] MEDS: PROSOURCE / PROSTAT (PYXIS) 30 ML UDC PO SCH ×2 (10:28→17:30)
[2016-07-31] MEDS: PANTOPRAZOLE 40 MG TABLET.DR PO SCH (10:28)
[2016-07-31] MEDS: POTASSIUM CHLORIDE 10 MEQ TABLET.SA PO SCH (10:28)
[2016-07-31] MEDS: CALCIUM CARB 250MG /VITAMIN D 1 UDTAB PO SCH ×2 (10:28→17:30)
[2016-07-31] MEDS: MULTIVITAMINS W-MINERALS 1 TAB TABLET PO SCH (10:28)
[2016-07-31] MEDS: Z GUARD REMEDY 2 OZ OINT TP SCH (10:29)
[2016-07-31] MEDS: LACTOBACILLUS RHAMNOSUS GG 1 EACH CAP.SPRINK PO SCH ×2 (10:29→17:30)
[2016-07-31] MEDS: DOCUSATE SODIUM 100 MG CAPSULE PO SCH (10:29)
[2016-07-31] MEDS ORDERED: VANC750F2 IV (10:36)
[2016-07-31] MEDS ORDERED: MERO500V IV (10:36)
[2016-07-31] MEDS: INSULIN REGULAR, HUMAN 100 UNIT/ML 3 ML VIAL SQ PRN (12:12)
[2016-07-31 16:00] VITALS: BP 139/93
[2016-07-31] MEDS: ATORVASTATIN 10 MG TABLET PO SCH (17:30)
[2016-07-31] MEDS: MIRTAZAPINE 15 MG TABLET PO SCH (17:37)
--- NOTE | 2016-07-31 18:05 | NUR ---
RN Notes With DC order to [facility]. Discharge instruction given to patient regarding home medication and follow up with primary care physician in 1 week. Patient unable to sign, JUNE wallace sign discharge paper. No belongings were recorded. IV access on right upper arm and left forearm kept in place for IV merrem and IV Vanco use. Skin intact. Refused picture documentation. BS checked as 103. dinner served taken well. Report given to JUNE Rosa. Left hospital via ambulance in stable condition. Patient is awake,alert and oriented. Not in sny form of distress.
== END 2016-07-31 18:05 | DRG 720 ==
LOC: ER 23:36 → MED 07-25 02:55 → TELE 07-25 04:54 → MED 07-25 17:48
PROVIDERS: ADMIT Contractor; ATTEND Family Medicine
DX: A41.9 Sepsis, unspecified organism (principal); I21.4 Non-ST elevation (NSTEMI) myocardial infarction; E44.0 Moderate protein-calorie malnutrition; R53.2 Functional quadriplegia; E87.2 Acidosis; N39.0 Urinary tract infection, site not specified; I69.354 Hemiplegia and hemiparesis following cerebral infarction affecting left non-dominant side; E11.9 Type 2 diabetes mellitus without complications; B96.20 Unspecified Escherichia coli [E. coli] as the cause of diseases classified elsewhere; T83.83XA Hemorrhage due to genitourinary prosthetic devices, implants and grafts, initial encounter; D64.9 Anemia, unspecified; R31.9 Hematuria, unspecified; E78.5 Hyperlipidemia, unspecified; Y84.6 Urinary catheterization as the cause of abnormal reaction of the patient, or of later complication, without mention of misadventure at the time of the procedure; Y92.009 Unspecified place in unspecified non-institutional (private) residence as the place of occurrence of the external cause; Z68.23 Body mass index [BMI] 23.0-23.9, adult; I69.920 Aphasia following unspecified cerebrovascular disease
CPT/HCPCS: 36415; 76770-TC; 80048-TC; 80053-TC; 80061-TC; 80202-TC; 81000-TC; 82247-TC; 82248-TC; 82962-TC; 83605-TC; 83735-TC; 84100-TC; 84443-TC; 84484-TC; 85025-TC; 85730-TC; 87040-TC; 87081-TC; 87086-TC; 87186-TC; A4216; A4606; A6402; J0696; J1815; J2185; J3370; J7030; J7040; J7050; J7060; Z7610